=== PATIENT | female | born 1990 | race American Indian/Alaskan Native ===

== ENCOUNTER 2018-11-19 22:07 | Emergency (ER) | payer OTHER ==
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
[2018-11-19 22:41] VITALS: BP 131/72
[2018-11-19] MEDS ORDERED: IBUPROFEN ONE (22:46)
--- NOTE | 2018-11-19 23:39 | XRay Report ---
FINAL REPORT PROCEDURE: XR WRIST 3+V RT TECHNIQUE: RIGHT wrist radiographs, including AP, lateral, and oblique views. CPT 24092 HISTORY: pain rt wrist COMPARISON: No prior studies are available for comparison. FINDINGS: Fracture (s) and/or Dislocation(s): Comminuted intra-articular distal radius fracture. Alignment: Normal . Joint space(s): Normal . Soft tissues: Swelling. Bone mineralization: Normal . Foreign bodies: None . IMPRESSION: Distal radius fracture.
--- NOTE | 2018-11-19 23:40 | XRay Report ---
FINAL REPORT PROCEDURE: XR HAND 3+V RT TECHNIQUE: RIGHT hand radiographs, AP, lateral, and oblique views. CPT 57441-JP HISTORY: pain/injury COMPARISON: No prior studies are available for comparison. FINDINGS: Fracture (s) and/or Dislocation(s): Comminuted intra-articular distal radius fracture. Alignment: Normal . Joint space(s): Normal . Soft tissues: Normal . Bone mineralization: Normal . Foreign bodies: None . IMPRESSION: Distal radius fracture.
[2018-11-20] MEDS ORDERED: IBUPROFEN PO ONE (00:15)
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
== END 2018-11-20 03:55 | disposition home or self-care (01) ==
LOC: ED 22:07
DX: S52.501A Unspecified fracture of the lower end of right radius, initial encounter for closed fracture (principal); S13.4XXA Sprain of ligaments of cervical spine, initial encounter; R51 Headache; V49.49XA Driver injured in collision with other motor vehicles in traffic accident, initial encounter; Y93.89 Activity, other specified; Y92.410 Unspecified street and highway as the place of occurrence of the external cause; Y99.8 Other external cause status
CPT/HCPCS: 70450; 72125